=== PATIENT | female | born 1985 ===

== ENCOUNTER 2021-02-01 23:31 | Emergency (ER) | payer MEDICAID ==
[2021-02-02 03:15] LABS: Basophils # (Auto) 0.2 K/mm3 (0.0-0.1); Basophils % (Auto) 2.6 % (0.0-1.8); Eosinophils # (Auto) 0.2 K/mm3 (0.0-0.4); Eosinophils % (Auto) 2.2 % (0.0-4.3); Hematocrit 35.9 % (30.3-42.9); Hemoglobin 11.7 gm/dl (10.1-14.3); Lymphocytes # (Auto) 2.4 K/mm3 (1.2-5.4); Lymphocytes % (Auto) 30.1 % (13.4-35.0); Mean Corpuscular HGB Conc 33 % (30-34); Mean Corpuscular Volume 93 fl (79-97); Monocytes # (Auto) 0.4 K/mm3 (0.0-0.8); Monocytes % (Auto) 5.1 % (0.0-7.3); Platelet Count 288 K/mm3 (140-440); Red Blood Count 3.86 M/mm3 (3.65-5.03); Red Cell Distribution Width 13.6 % (13.2-15.2)
[2021-02-02 03:38] LABS: Alanine Aminotransferase 9 units/L (7-56); Albumin 4.4 g/dL (3.9-5); Blood Urea Nitrogen 11 mg/dL (7-17); Calcium 9.3 mg/dL (8.4-10.2); Hemolysis Index 15
[2021-02-02 03:47] LABS: BUN/Creatinine Ratio 22
--- NOTE | 2021-02-02 07:20 | Ultrasound Report ---
ULTRASOUND OBSTETRIC INDICATION: Vaginal bleeding. History of miscarriage on 12/23/2020. TECHNIQUE: Transabdominal. COMPARISON: None available. FINDINGS: GESTATIONAL SAC: None seen. YOLK SAC: None seen. EMBRYO/FETUS: None seen. ADNEXA: The right ovary is not identified. No significant right adnexal abnormality. The left ovary c ontains a 5.5 cm cyst without other significant abnormalities. FREE FLUID: None. ADDITIONAL FINDINGS: The endometrium is thickened and measures 3.3 cm and contains heterogeneous mate rial with internal vascularity. IMPRESSION: 1. Suspected retained products of conception in the endometrial canal. 2. Simple left ovarian cyst measuring 5.5 cm. Signer Name: Wilberto Pizarro MD Signed: 02/02/2021 7:16 AM Workstation Name: [id number]
--- NOTE | 2021-02-02 07:32 | Emergency Department Report ---
ED Female HPI - General Chief complaint: Vaginal Bleeding Stated complaint: VAG BLEEDING Time Seen by Provider: 02/02/21 06:09 Source: patient Mode of arrival: Ambulatory Limitations: No Limitations - History of Present Illness Initial comments: 35-year-old female presents to the ER today complaining of miscarriage. Patient states that her last menstrual cycle was December 22, 2020. She states that when she missed her period in November, she took a home test and it was positive. She states that then around December 23 she started to have cramps, vaginal bleeding with blood clots. She states that she never followed up or establish with an [facility]. She also did not go get checked out at an urgent care or her primary care provider when she started with her symptoms. She states that at some point the bleeding did slow down, but 3 to 4 days ago she started to bleed heavier than normal again, with clots, abdominal cramping and low back pain. She states that currently the bleeding is light, but given her symptoms she was concerned that she may have had a miscarriage and so came to the ER to get checked out. She denies any UTI symptoms. She denies any fever or chills. She is G3, P2 Ab0. Complaint: vaginal bleeding -: Gradual - Related Data Previous Rx's Medication Instructions Recorded Last Taken Type cephALEXin [Keflex] 500 mg PO Q8HR #21 cap 02/02/21 Unknown Rx Allergies Allergy/AdvReac Type Severity Reaction Status Date / Time No Known Allergies Allergy Unverified 02/02/21 02:27 ED Review of Systems ROS: Stated complaint: VAG BLEEDING Other details as noted in HPI Comment: All other systems reviewed and negative Constitutional: denies: chills, fever Eyes: denies: eye pain, eye discharge, vision change ENT: denies: ear pain, throat pain Respiratory: denies: cough, shortness of breath, SOB with exertion, SOB at rest, wheezing Cardiovascular: denies: chest pain, palpitations, dyspnea on exertion Gastrointestinal: abdominal pain. denies: nausea, vomiting, diarrhea, constipation, hematemesis, hematochezia Genitourinary: denies: urgency, dysuria, frequency, hematuria, discharge, abnormal menses, dyspareunia Musculoskeletal: back pain. denies: joint swelling, arthralgia Skin: denies: rash, lesions, change in color, change in hair/nails, pruritus Neurological: denies: headache, weakness, numbness, paresthesias, confusion, abnormal gait, vertigo Psychiatric: denies: anxiety, depression, auditory hallucinations, visual kayode lucinations, homicidal thoughts, suicidal thoughts Hematological/Lymphatic: denies: easy bleeding, easy bruising, swollen glands ED Past Medical Hx - Past Medical History Previous Medical History?: No - Surgical History Past Surgical History?: No - Medications Home Medications: Home Medications Medication Instructions Recorded Confirmed Last Taken Type cephALEXin [Keflex] 500 mg PO Q8HR #21 cap 02/02/21 Unknown Rx ED Physical Exam - General Limitations: No Limitations General appearance: alert, in no apparent distress - Head Head exam: Present: atraumatic, normocephalic, normal inspection - Eye Eye exam: Present: normal appearance, PERRL, EOMI Pupils: Present: normal accommodation - Neck Neck exam: Present: normal inspection, full ROM - Respiratory Respiratory exam: Present: normal lung sounds bilaterally. Absent: respiratory distress, wheezes, rales, rhonchi, stridor - Cardiovascular Cardiovascular Exam: Present: regular rate, normal rhythm, normal heart sounds - GI/Abdominal GI/Abdominal exam: Present: soft. Absent: distended, tenderness, guarding, rebound - Neurological Exam Neurological exam: Present: alert, oriented X3, CN II-XII intact, normal gait - Psychiatric Psychiatric exam: Present: normal affect, normal mood - Skin Skin exam: Present: intact ED Course Vital Signs 02/01/21 02/02/21 23:36 09:55 Temperature 98.8 F 98.5 F Pulse Rate 74 78 Respiratory 16 16 Rate Blood Pressure 107/71 115/67 [Left] O2 Sat by Pulse 100 100 Oximetry ED Medical Decision Making - Lab Data Result diagrams: 02/02/21 03:03 02/02/21 03:03 - Radiology Data Radiology results: report reviewed Patient: BRIANNA GILES MR#: [id number] : 1985 Acct:[id number] Age/Sex: 35 / F ADM Date: 02/01/21 Loc: ED Attending Dr: Ordering Physician: KONRAD MADRID NP Date of Service: 02/02/21 Procedure(s): US OB <= 14 weeks fetus Accession Number(s): [id number] cc: KONRAD MADRID, NICHOLAS ULTRASOUND OBSTETRIC INDICATION: Vaginal bleeding. History of miscarriage on 12/23/2020. TECHNIQUE: Transabdominal. COMPARISON: None available. FINDINGS: GESTATIONAL SAC: None seen. YOLK SAC: None seen. EMBRYO/FETUS: None seen. ADNEXA: The right ovary is not identified. No significant right adnexal abnormality. The left ovary contains a 5.5 cm cyst without other significant abnormalities. FREE FLUID: None. ADDITIONAL FINDINGS: The endometrium is thickened and measures 3.3 cm and contains heterogeneous material with internal vascularity. IMPRESSION: 1. Suspected retained products of conception in the endometrial canal. 2. Simple left ovarian cyst measuring 5.5 cm. Signer Name: Wilberto Pizarro MD Signed: 02/02/2021 7:16 AM Workstation Name: [id number] Transcribed By: COCO Dictated By: Wilberto Pizarro MD Electronically Authenticated By: Wilberto Pizarro MD Signed Date/Time: 02/02/21715 DD/ 2 TD/TT: - Medical Decision Making CBC and CMP unremarkable. Urinalysis concerning for UTI. hCG quant 82.3, ultrasound shows suspected retained products of conception and an ovarian cyst. Patient currently resting comfortably. She is not toxic or ill-appearing. She is hemodynamically stable. Vital signs have been stable. She is neurologically intact with a normal gait. She denies any significant pain or distress. She has a soft nontender abdomen. ED Rh is A+ and therefore no indication for RhoGam. Discussed results with patient. At this point looks like she may have a incomplete miscarriage. She does have an appointment scheduled with [facility] for February, but I recommend that she tries to follow-up sooner. She also be given referral to [facility]. At this time there is no indication for additional testing or emergent OB consult. Patient expresses understanding of all instructions and agreed with plan. Patient stable at time for discharge. Critical care attestation.: If time is entered above; I have spent that time in minutes in the direct care of this critically ill patient, excluding procedure time. ED Disposition Clinical Impression: Incomplete miscarriage, UTI (urinary tract infection) Disposition: HOME / SELF CARE / HOMELESS Is pt being admited?: No Does the pt Need Aspirin: No Condition: Stable Instructions: Threatened Miscarriage, Incomplete Miscarriage Additional Instructions: Your quantitative hCG today measured at 82.63, your ultrasound today showed suspected retained products of conception in the endometrial canal. You will need to follow-up closely with your [facility]. I know you do have an appointment set up for February, but I recommend that you try to follow-up next week. Copies of your ultrasound report any quantitative hCG measurements were given to you today at discharge. Please take with you at your appointments. Take the antibiotics as prescribed. You can take Tylenol and ibuprofen for any pain. Return to the ER if your symptoms worsens in any way. Prescriptions: cephALEXin [Keflex] 500 mg PO Q8HR #21 cap Referrals: [facility] [Provider Group] - 3-5 Days Forms: Work/School Release Form(ED) Time of Disposition: 09:46
[2021-02-02 09:26] LABS: Bacteria,Urine 2+ /HPF (Negative); Bilirubin,Urine NEG (Negative); Blood,Urine LG (Negative); Color,Urine Amber (Yellow); Mucus,Urine 2+ /HPF
[2021-02-02 09:57] VITALS: BP 115/67
== END 2021-02-02 09:57 | disposition home or self-care (01) ==
LOC: ED 23:31
DX: O03.4 Incomplete spontaneous abortion without complication (principal); O23.41 Unspecified infection of urinary tract in pregnancy, first trimester; N39.0 Urinary tract infection, site not specified; Z3A.00 Weeks of gestation of pregnancy not specified
CPT/HCPCS: 36415; 76801; 80053; 81001; 84702; 85025; 86900; 86901; 87086; 99284